=== PATIENT | male | born 1975 | race African-American/Black ===

== ENCOUNTER 2018-11-05 08:47 | Inpatient (IN) | payer OTHER ==
[2018-11-05 09:56] VITALS: BMI 28.8
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
[2018-11-05] MEDS ORDERED: chlordiazePOXIDE HCL 25 MG CAPSULE PO PRN (10:45)
[2018-11-05] MEDS ORDERED: NICOTINE POLACRILEX 4 MG GUM BUC PRN (10:45)
[2018-11-05] MEDS ORDERED: hydrOXYzine PAMOATE 25 MG CAPSULE (FP) PO PRN (10:45)
[2018-11-05] MEDS ORDERED: MENTHOL/PHENOL 1 EACH UD MM PRN (10:45)
[2018-11-05] MEDS ORDERED: MAGNESIUM CITRATE 300 ML BOTTLE PO PRN (10:45)
[2018-11-05] MEDS ORDERED: ACETAMINOPHEN 325 MG TABLET (FP) PO PRN ×2 (10:45)
[2018-11-05] MEDS ORDERED: MAG HYDROX/AL HYDROX/SIMETH 30 ML UNIT-DOSE CUP PO PRN (10:45)
[2018-11-05] MEDS ORDERED: METHOCARBAMOL 500 MG TABLET PO PRN (10:45)
[2018-11-05] MEDS ORDERED: MAGNESIUM HYDROX 2400MG/30ML ORAL SUSPENSION 30 ML CUP PO PRN (10:45)
[2018-11-05] MEDS ORDERED: BISMUTH SUBSALICYLATE 524 MG/30 ML UD PO PRN (10:45)
[2018-11-05] MEDS ORDERED: IBUPROFEN 400 MG TABLET (FP) PO PRN (10:45)
[2018-11-05] MEDS ORDERED: chlordiazePOXIDE HCL 25 MG CAPSULE PO ONE (11:30)
[2018-11-05] MEDS: FLUoxetine HCL 20 MG CAPSULE (FP) PO SCH (13:21)
[2018-11-05] MEDS: amLODIPine BESYLATE 10 MG TABLET (FP) PO SCH (13:21)
[2018-11-05] MEDS: PATIENT'S OWN MEDICATION (NON-FORMULARY) (Bictegrav/Emtricit/Tenofov Ala 1 EACH) PO SCH (13:27)
[2018-11-05] MEDS: chlordiazePOXIDE HCL 25 MG CAPSULE PO SCH ×2 (18:07→22:46)
[2018-11-05] MEDS: THIAMINE HCL 100 MG TABLET (FP) PO SCH (22:46)
--- NOTE | 2018-11-05 23:59 | EKG ---
Test Reason : Blood Pressure : / mmHG Vent. Rate : 071 BPM Atrial Rate : 071 BPM P-R Int : 178 ms QRS Dur : 096 ms QT Int : 410 ms P-R-T Axes : 064 071 053 degrees QTc Int : 445 ms NORMAL SINUS RHYTHM EARLY REPOLARIZATION NORMAL ECG NO PREVIOUS ECGS AVAILABLE Confirmed by DARYA CERON, BRONWYN ([id number]) on 11/05/2018 11:59:11 PM Referred By: ORESTES PAGAN Confirmed By:BRONWYN LACKEY MD
[2018-11-06] MEDS: chlordiazePOXIDE HCL 25 MG CAPSULE PO SCH ×4 (05:38→22:10)
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
[2018-11-06] MEDS: amLODIPine BESYLATE 10 MG TABLET (FP) PO SCH (10:35)
[2018-11-06] MEDS: PRENATAL VITAMINS W/ FOLIC ACID TABLET (FP) PO SCH (10:35)
[2018-11-06] MEDS: FLUoxetine HCL 20 MG CAPSULE (FP) PO SCH (10:35)
[2018-11-06] MEDS: PATIENT'S OWN MEDICATION (NON-FORMULARY) (Bictegrav/Emtricit/Tenofov Ala 1 EACH) PO SCH (10:35)
[2018-11-06 10:47] LABS: HEMATOCRIT 47.3 % (35.4-49); HEMOGLOBIN 15.5 GM/dL (11.7-16.9); MCH 28.5 pg (25.7-33.7); MCHC 32.7 g/dl (32.0-35.9); MEAN PLT VOLUME 10.5 fl (7.5-11.1); PLATELET COUNT 194 K/MM3 (134-434); RBC 5.43 M/mm3 (4.00-5.60); RDW 14.3 % (11.9-15.9)
[2018-11-06 10:51] LABS: ALBUMIN 3.6 g/dl (3.4-5.0); BILIRUBIN,TOTAL 0.5 mg/dL (0.2-1); BLOOD UREA NITROGEN 15.1 mg/dL (7-18); CALCIUM 8.7 mg/dL (8.5-10.1); CREATININE 0.9 mg/dL (0.55-1.3); POTASSIUM 3.9 mmol/L (3.5-5.1); TOT PROT 7.3 g/dl (6.4-8.2)
--- NOTE | 2018-11-06 15:12 | PN ---
[facility] CIWA - CIWA Score Nausea/Vomitin-Mild Nausea/No Vomiting Muscle Tremors: 3 Anxiety: 3 Agitation: 3 Paroxysmal Sweats: 1-Minimal Palms Moist Orientation: 0-Oriented Tacttile Disturbances: 0-None Auditory Disturbances: 0-None Visual Disturbances: 0-None Headache: 2-Mild CIWA-Ar Total Score: 13 S Progress Note (SOAP) Subjective: doing well with librium detox protocol less tremor ambulating on hallway social with peers in day room encourage the patient to discuss aftercare with staff Objective: 11/06/18 15:14 Vital Signs Temperature 97.2 F L 11/06/18 13:17 Pulse Rate 75 11/06/18 13:17 Respiratory Rate 18 11/06/18 13:17 Blood Pressure 134/86 11/06/18 13:17 O2 Sat by Pulse Oximetry (%) Laboratory Last Values WBC 5.0 K/mm3 (4.0-10.0) 11/06/18 07:50 RBC 5.43 M/mm3 (4.00-5.60) 11/06/18 07:50 Hgb 15.5 GM/dL (11.7-16.9) 11/06/18 07:50 Hct 47.3 % (35.4-49) 11/06/18 07:50 MCV 87.0 fl (80-96) 11/06/18 07:50 MCH 28.5 pg (25.7-33.7) 11/06/18 07:50 MCHC 32.7 g/dl (32.0-35.9) 11/06/18 07:50 RDW 14.3 % (11.9-15.9) 11/06/18 07:50 Plt Count 194 K/MM3 (134-434) 11/06/18 07:50 MPV 10.5 fl (7.5-11.1) 11/06/18 07:50 Sodium 141 mmol/L (136-145) 11/06/18 07:50 Potassium 3.9 mmol/L (3.5-5.1) 11/06/18 07:50 Chloride 108 mmol/L (98-107) H 11/06/18 07:50 Carbon Dioxide 27 mmol/L (21-32) 11/06/18 07:50 Anion Gap 6 MMOL/L (8-16) L 11/06/18 07:50 BUN 15.1 mg/dL (7-18) 11/06/18 07:50 Creatinine 0.9 mg/dL (0.55-1.3) 11/06/18 07:50 Est GFR (CKD-EPI)AfAm 120.81 11/06/18 07:50 Est GFR (CKD-EPI)NonAf 104.24 11/06/18 07:50 Random Glucose 77 mg/dL (74-106) 11/06/18 07:50 Calcium 8.7 mg/dL (8.5-10.1) 11/06/18 07:50 Total Bilirubin 0.5 mg/dL (0.2-1) 11/06/18 07:50 AST 17 U/L (15-37) 11/06/18 07:50 ALT 22 U/L (13-61) 11/06/18 07:50 Alkaline Phosphatase 73 U/L (45-117) 11/06/18 07:50 Total Protein 7.3 g/dl (6.4-8.2) 11/06/18 07:50 Albumin 3.6 g/dl (3.4-5.0) 11/06/18 07:50 RPR Titer Nonreactive (NONREACTIVE) 11/06/18 07:50 lab noted Assessment: 11/06/18 15:14 alcohol withdrawal sx Plan: continue alcohol detox
[2018-11-06] MEDS: THIAMINE HCL 100 MG TABLET (FP) PO SCH (22:10)
[2018-11-07] MEDS: chlordiazePOXIDE HCL 25 MG CAPSULE PO SCH ×4 (05:56→22:20)
[2018-11-07] MEDS: FLUoxetine HCL 20 MG CAPSULE (FP) PO SCH (10:27)
[2018-11-07] MEDS: amLODIPine BESYLATE 10 MG TABLET (FP) PO SCH (10:27)
[2018-11-07] MEDS: PATIENT'S OWN MEDICATION (NON-FORMULARY) (Bictegrav/Emtricit/Tenofov Ala 1 EACH) PO SCH (10:27)
[2018-11-07] MEDS: PRENATAL VITAMINS W/ FOLIC ACID TABLET (FP) PO SCH (10:27)
--- NOTE | 2018-11-07 10:50 | PN ---
S CIWA - CIWA Score Nausea/Vomitin-Mild Nausea/No Vomiting Muscle Tremors: 3 Anxiety: 2 Agitation: 3 Paroxysmal Sweats: 1-Minimal Palms Moist Orientation: 1-Uncertain about Date Tacttile Disturbances: 1-Very Mild Itch/Numbness Auditory Disturbances: 0-None Visual Disturbances: 0-None Headache: 0-None Present CIWA-Ar Total Score: 12 BHS Progress Note (SOAP) Subjective: 43 years old male admitted on 11/05/18 for acute alcohol withdrawal sx management doing well with librium detox protocol "little less tremor and sweat otherwise feeling ok Objective: 11/07/18 10:57 Vital Signs Temperature 97.1 F L 11/07/18 10:04 Pulse Rate 61 11/07/18 10:04 Respiratory Rate 20 11/07/18 10:04 Blood Pressure 132/82 11/07/18 10:04 O2 Sat by Pulse Oximetry (%) Laboratory Last Values WBC 5.0 K/mm3 (4.0-10.0) 11/06/18 07:50 RBC 5.43 M/mm3 (4.00-5.60) 11/06/18 07:50 Hgb 15.5 GM/dL (11.7-16.9) 11/06/18 07:50 Hct 47.3 % (35.4-49) 11/06/18 07:50 MCV 87.0 fl (80-96) 11/06/18 07:50 MCH 28.5 pg (25.7-33.7) 11/06/18 07:50 MCHC 32.7 g/dl (32.0-35.9) 11/06/18 07:50 RDW 14.3 % (11.9-15.9) 11/06/18 07:50 Plt Count 194 K/MM3 (134-434) 11/06/18 07:50 MPV 10.5 fl (7.5-11.1) 11/06/18 07:50 Sodium 141 mmol/L (136-145) 11/06/18 07:50 Potassium 3.9 mmol/L (3.5-5.1) 11/06/18 07:50 Chloride 108 mmol/L (98-107) H 11/06/18 07:50 Carbon Dioxide 27 mmol/L (21-32) 11/06/18 07:50 Anion Gap 6 MMOL/L (8-16) L 11/06/18 07:50 BUN 15.1 mg/dL (7-18) 11/06/18 07:50 Creatinine 0.9 mg/dL (0.55-1.3) 11/06/18 07:50 Est GFR (CKD-EPI)AfAm 120.81 11/06/18 07:50 Est GFR (CKD-EPI)NonAf 104.24 11/06/18 07:50 Random Glucose 77 mg/dL (74-106) 11/06/18 07:50 Calcium 8.7 mg/dL (8.5-10.1) 11/06/18 07:50 Total Bilirubin 0.5 mg/dL (0.2-1) 11/06/18 07:50 AST 17 U/L (15-37) 11/06/18 07:50 ALT 22 U/L (13-61) 11/06/18 07:50 Alkaline Phosphatase 73 U/L (45-117) 11/06/18 07:50 Total Protein 7.3 g/dl (6.4-8.2) 11/06/18 07:50 Albumin 3.6 g/dl (3.4-5.0) 11/06/18 07:50 RPR Titer Nonreactive (NONREACTIVE) 11/06/18 07:50 lab noted Assessment: 11/07/18 10:57 alcohol withdrawal sx Plan: continue alcohol detox
[2018-11-07] MEDS: THIAMINE HCL 100 MG TABLET (FP) PO SCH (22:20)
[2018-11-07] MEDS: MELATONIN 5 MG TABLETS PO PRN (22:20)
[2018-11-08] MEDS ORDERED: chlordiazePOXIDE HCL 10 MG CAPSULE PO PRN
[2018-11-08] MEDS: chlordiazePOXIDE HCL 10 MG CAPSULE PO SCH ×4 (05:08→22:11)
[2018-11-08] MEDS: PRENATAL VITAMINS W/ FOLIC ACID TABLET (FP) PO SCH (10:18)
[2018-11-08] MEDS: PATIENT'S OWN MEDICATION (NON-FORMULARY) (Bictegrav/Emtricit/Tenofov Ala 1 EACH) PO SCH (10:18)
[2018-11-08] MEDS: FLUoxetine HCL 20 MG CAPSULE (FP) PO SCH (10:18)
[2018-11-08] MEDS: amLODIPine BESYLATE 10 MG TABLET (FP) PO SCH (10:18)
--- NOTE | 2018-11-08 11:26 | PN ---
[facility] CIWA - CIWA Score Nausea/Vomitin-Mild Nausea/No Vomiting Muscle Tremors: 3 Anxiety: 2 Agitation: 2 Paroxysmal Sweats: 1-Minimal Palms Moist Orientation: 1-Uncertain about Date Tacttile Disturbances: 1-Very Mild Itch/Numbness Auditory Disturbances: 0-None Visual Disturbances: 0-None Headache: 0-None Present CIWA-Ar Total Score: 11 S Progress Note (SOAP) Subjective: diarrhea encourage pepto bismouth administration encourage oral fluid denies dizziness steady gait Objective: 11/08/18 11:25 Vital Signs Temperature 98.1 F 11/08/18 09:27 Pulse Rate 59 L 11/08/18 09:27 Respiratory Rate 18 11/08/18 09:27 Blood Pressure 111/76 11/08/18 09:27 O2 Sat by Pulse Oximetry (%) Laboratory Last Values WBC 5.0 K/mm3 (4.0-10.0) 11/06/18 07:50 RBC 5.43 M/mm3 (4.00-5.60) 11/06/18 07:50 Hgb 15.5 GM/dL (11.7-16.9) 11/06/18 07:50 Hct 47.3 % (35.4-49) 11/06/18 07:50 MCV 87.0 fl (80-96) 11/06/18 07:50 MCH 28.5 pg (25.7-33.7) 11/06/18 07:50 MCHC 32.7 g/dl (32.0-35.9) 11/06/18 07:50 RDW 14.3 % (11.9-15.9) 11/06/18 07:50 Plt Count 194 K/MM3 (134-434) 11/06/18 07:50 MPV 10.5 fl (7.5-11.1) 11/06/18 07:50 Sodium 141 mmol/L (136-145) 11/06/18 07:50 Potassium 3.9 mmol/L (3.5-5.1) 11/06/18 07:50 Chloride 108 mmol/L (98-107) H 11/06/18 07:50 Carbon Dioxide 27 mmol/L (21-32) 11/06/18 07:50 Anion Gap 6 MMOL/L (8-16) L 11/06/18 07:50 BUN 15.1 mg/dL (7-18) 11/06/18 07:50 Creatinine 0.9 mg/dL (0.55-1.3) 11/06/18 07:50 Est GFR (CKD-EPI)AfAm 120.81 11/06/18 07:50 Est GFR (CKD-EPI)NonAf 104.24 11/06/18 07:50 Random Glucose 77 mg/dL (74-106) 11/06/18 07:50 Calcium 8.7 mg/dL (8.5-10.1) 11/06/18 07:50 Total Bilirubin 0.5 mg/dL (0.2-1) 11/06/18 07:50 AST 17 U/L (15-37) 11/06/18 07:50 ALT 22 U/L (13-61) 11/06/18 07:50 Alkaline Phosphatase 73 U/L (45-117) 11/06/18 07:50 Total Protein 7.3 g/dl (6.4-8.2) 11/06/18 07:50 Albumin 3.6 g/dl (3.4-5.0) 11/06/18 07:50 RPR Titer Nonreactive (NONREACTIVE) 11/06/18 07:50 lab noted Assessment: 11/08/18 11:25 alcohol withdrawal sx Plan: continue alcohol detox
[2018-11-08] MEDS: THIAMINE HCL 100 MG TABLET (FP) PO SCH (22:11)
[2018-11-08] MEDS: MELATONIN 5 MG TABLETS PO PRN (22:12)
[2018-11-09] MEDS: chlordiazePOXIDE HCL 10 MG CAPSULE PO SCH ×2 (05:44→17:32)
[2018-11-09] MEDS: FLUoxetine HCL 20 MG CAPSULE (FP) PO SCH (10:05)
[2018-11-09] MEDS: amLODIPine BESYLATE 10 MG TABLET (FP) PO SCH (10:05)
[2018-11-09] MEDS: PRENATAL VITAMINS W/ FOLIC ACID TABLET (FP) PO SCH (10:05)
[2018-11-09] MEDS: PATIENT'S OWN MEDICATION (NON-FORMULARY) (Bictegrav/Emtricit/Tenofov Ala 1 EACH) PO SCH (10:05)
--- NOTE | 2018-11-09 14:32 | PN ---
[facility] CIWA - CIWA Score Nausea/Vomitin-No Nausea/No Vomiting Muscle Tremors: 2 Anxiety: 1-Mildly Anxious Agitation: 2 Paroxysmal Sweats: 1-Minimal Palms Moist Orientation: 0-Oriented Tacttile Disturbances: 1-Very Mild Itch/Numbness Auditory Disturbances: 0-None Visual Disturbances: 0-None Headache: 0-None Present CIWA-Ar Total Score: 7 S Progress Note (SOAP) Subjective: doing well with librium detox protocol less tremor sleep better at night discuss aftercare with staff patient [facility] Objective: 11/09/18 14:34 Vital Signs Temperature 97.2 F L 11/09/18 13:33 Pulse Rate 78 11/09/18 13:33 Respiratory Rate 18 11/09/18 13:33 Blood Pressure 124/83 11/09/18 13:33 O2 Sat by Pulse Oximetry (%) Laboratory Last Values WBC 5.0 K/mm3 (4.0-10.0) 11/06/18 07:50 RBC 5.43 M/mm3 (4.00-5.60) 11/06/18 07:50 Hgb 15.5 GM/dL (11.7-16.9) 11/06/18 07:50 Hct 47.3 % (35.4-49) 11/06/18 07:50 MCV 87.0 fl (80-96) 11/06/18 07:50 MCH 28.5 pg (25.7-33.7) 11/06/18 07:50 MCHC 32.7 g/dl (32.0-35.9) 11/06/18 07:50 RDW 14.3 % (11.9-15.9) 11/06/18 07:50 Plt Count 194 K/MM3 (134-434) 11/06/18 07:50 MPV 10.5 fl (7.5-11.1) 11/06/18 07:50 Sodium 141 mmol/L (136-145) 11/06/18 07:50 Potassium 3.9 mmol/L (3.5-5.1) 11/06/18 07:50 Chloride 108 mmol/L (98-107) H 11/06/18 07:50 Carbon Dioxide 27 mmol/L (21-32) 11/06/18 07:50 Anion Gap 6 MMOL/L (8-16) L 11/06/18 07:50 BUN 15.1 mg/dL (7-18) 11/06/18 07:50 Creatinine 0.9 mg/dL (0.55-1.3) 11/06/18 07:50 Est GFR (CKD-EPI)AfAm 120.81 11/06/18 07:50 Est GFR (CKD-EPI)NonAf 104.24 11/06/18 07:50 Random Glucose 77 mg/dL (74-106) 11/06/18 07:50 Calcium 8.7 mg/dL (8.5-10.1) 11/06/18 07:50 Total Bilirubin 0.5 mg/dL (0.2-1) 11/06/18 07:50 AST 17 U/L (15-37) 11/06/18 07:50 ALT 22 U/L (13-61) 11/06/18 07:50 Alkaline Phosphatase 73 U/L (45-117) 11/06/18 07:50 Total Protein 7.3 g/dl (6.4-8.2) 11/06/18 07:50 Albumin 3.6 g/dl (3.4-5.0) 11/06/18 07:50 RPR Titer Nonreactive (NONREACTIVE) 11/06/18 07:50 lab noted Assessment: 11/09/18 14:34 alcohol withdrawal sx Plan: continue alcohol detox
[2018-11-09] MEDS: THIAMINE HCL 100 MG TABLET (FP) PO SCH (22:16)
[2018-11-09] MEDS: MELATONIN 5 MG TABLETS PO PRN (22:17)
[2018-11-10] MEDS ORDERED: chlordiazePOXIDE HCL 10 MG CAPSULE PO ONE (05:00)
[2018-11-10 09:46] VITALS: TEMP 97
[2018-11-10] MEDS: PRENATAL VITAMINS W/ FOLIC ACID TABLET (FP) PO SCH (10:43)
[2018-11-10] MEDS: PATIENT'S OWN MEDICATION (NON-FORMULARY) (Bictegrav/Emtricit/Tenofov Ala 1 EACH) PO SCH (10:43)
[2018-11-10] MEDS: amLODIPine BESYLATE 10 MG TABLET (FP) PO SCH (10:43)
[2018-11-10] MEDS: FLUoxetine HCL 20 MG CAPSULE (FP) PO SCH (10:44)
[2018-11-10 13:45] VITALS: BP 137/88; PULSE 81
--- NOTE | 2018-11-10 16:32 | DS ---
[facility] Detox Discharge Summary Admission Date: 11/05/18 Discharge Date: 11/10/18 - History Present History: Alcohol Dependence Additional Comments: 43 years old male admitted on 11/05/18 for alcohol withdrawal sx no complication throughout the detox stay alert oriented x 3 denies dizziness no shortness of breath - Physical Exam Results Vital Signs: Vital Signs Temperature 97.0 F L 11/10/18 13:44 Pulse Rate 81 11/10/18 13:44 Respiratory Rate 18 11/10/18 13:44 Blood Pressure 137/88 11/10/18 13:44 O2 Sat by Pulse Oximetry (%) Pertinent Admission Physical Exam Findings: alcohol withdrawal sx Laboratory Last Values WBC 5.0 K/mm3 (4.0-10.0) 11/06/18 07:50 RBC 5.43 M/mm3 (4.00-5.60) 11/06/18 07:50 Hgb 15.5 GM/dL (11.7-16.9) 11/06/18 07:50 Hct 47.3 % (35.4-49) 11/06/18 07:50 MCV 87.0 fl (80-96) 11/06/18 07:50 MCH 28.5 pg (25.7-33.7) 11/06/18 07:50 MCHC 32.7 g/dl (32.0-35.9) 11/06/18 07:50 RDW 14.3 % (11.9-15.9) 11/06/18 07:50 Plt Count 194 K/MM3 (134-434) 11/06/18 07:50 MPV 10.5 fl (7.5-11.1) 11/06/18 07:50 Sodium 141 mmol/L (136-145) 11/06/18 07:50 Potassium 3.9 mmol/L (3.5-5.1) 11/06/18 07:50 Chloride 108 mmol/L (98-107) H 11/06/18 07:50 Carbon Dioxide 27 mmol/L (21-32) 11/06/18 07:50 Anion Gap 6 MMOL/L (8-16) L 11/06/18 07:50 BUN 15.1 mg/dL (7-18) 11/06/18 07:50 Creatinine 0.9 mg/dL (0.55-1.3) 11/06/18 07:50 Est GFR (CKD-EPI)AfAm 120.81 11/06/18 07:50 Est GFR (CKD-EPI)NonAf 104.24 11/06/18 07:50 Random Glucose 77 mg/dL (74-106) 11/06/18 07:50 Calcium 8.7 mg/dL (8.5-10.1) 11/06/18 07:50 Total Bilirubin 0.5 mg/dL (0.2-1) 11/06/18 07:50 AST 17 U/L (15-37) 11/06/18 07:50 ALT 22 U/L (13-61) 11/06/18 07:50 Alkaline Phosphatase 73 U/L (45-117) 11/06/18 07:50 Total Protein 7.3 g/dl (6.4-8.2) 11/06/18 07:50 Albumin 3.6 g/dl (3.4-5.0) 11/06/18 07:50 RPR Titer Nonreactive (NONREACTIVE) 11/06/18 07:50 TB (QFT) Incubation (.) 11/06/18 08:00 TB Test (QFT) Nil 0.38 IU/mL (.) 11/06/18 08:00 TB Test (QFT) Mitogen >10.00 IU/mL (.) 11/06/18 08:00 TB Test (QFT) Antigen 0.41 IU/mL (.) 11/06/18 08:00 TB Test (QFT) Negative (Negative) 11/06/18 08:00 TB Positive Criteria (.) 11/06/18 08:00 lab noted - Treatment Hospital Course: Detox Protocol Followed, Detoxed Safely, Responded well, Discharged Condition Good, Rehab Referral Accepted Patient has Accepted a Re[facility] Referral to: [facility] - Medication Discharge Medications: Ambulatory Orders Amlodipine Besylate 10 mg PO DAILY 11/05/18 Bictegrav/Emtricit/Tenofov Ala [Biktarvy 50-200-25 mg Tablet] 1 each PO DAILY Fluoxetine HCl 20 mg PO DAILY 11/05/18 - Diagnosis (1) Alcohol dependence with uncomplicated withdrawal Status: Acute (2) HTN (hypertension) Status: Chronic Qualifiers: Hypertension type: essential hypertension Qualified Code(s): I10 - Essential (primary) hypertension (3) HIV (human immunodeficiency virus infection) Status: Chronic Qualifiers: HIV symptom status: asymptomatic Qualified Code(s): Z21 - Asymptomatic human immunodeficiency virus [HIV] infection status (4) Nicotine dependence Status: Acute Qualifiers: Nicotine product type: cigarettes Substance use status: in withdrawal Qualified Code(s): F17.213 - Nicotine dependence, cigarettes, with withdrawal - AMA Did Patient Leave Against Medical Advice: No
== END 2018-11-10 15:00 | disposition home or self-care (01) | DRG 775 ==
LOC: YASAS 08:47 → Y3N 11:08
PROVIDERS: ADMIT Surgery; ATTEND Surgery
PROC: HZ2ZZZZ Detoxification Services for Substance Abuse Treatment (ICD-10-PCS; principal; 2018-11-05)
DX: F10.230 Alcohol dependence with withdrawal, uncomplicated (principal); F15.20 Other stimulant dependence, uncomplicated; F17.213 Nicotine dependence, cigarettes, with withdrawal; F43.10 Post-traumatic stress disorder, unspecified; F32.9 Major depressive disorder, single episode, unspecified; F19.280 Other psychoactive substance dependence with psychoactive substance-induced anxiety disorder; F19.282 Other psychoactive substance dependence with psychoactive substance-induced sleep disorder; I10 Essential (primary) hypertension; Z21 Asymptomatic human immunodeficiency virus [HIV] infection status; Z87.11 Personal history of peptic ulcer disease; Z87.820 Personal history of traumatic brain injury; Z91.5 Personal history of self-harm
CPT/HCPCS: 36415; 80053; 85027; 86480; 86593; 93005; 93010